=== PATIENT | male | born 2000 | race Two or more races ===

== ENCOUNTER 2024-08-26 20:56 | Emergency (ER) | payer MEDICAID, SELFPAY ==
[2024-08-26 20:57] VITALS: BMI 35.2
[2024-08-26 21:37] VITALS: BP 110/77; PULSE 60; RESP 18; TEMP 36.7; O2SAT 96
--- NOTE | 2024-08-26 22:06 | EDNOTE_ITS ---
ED General RME/HPI General Chief complaint: General Adult/Misc Complain Stated complaint: fish hook in L thumb Time Seen by Provider: 08/26/24 21:54 Arrival date/time: 08/26/24 20:56 RME / HPI RME / HPI narrative: 24-year-old male patient was brought in by family for evaluation regarding fishhook to the left thumb patient was fishing, it happened about 1 hour prior to ER visit accidentally got caught on a fishhook. Patient tried to remove with no success. Denies any other injury. Tetanus vaccination is unknown. Related Data Previous Rx's ?Medication ?Instructions ?Recorded docusate sodium 100 mg capsule 100 mg PO BID #40 caps 11/13/22 (Colace) hydrocodone 5 mg-acetaminophen 325 1 tab PO Q6H PRN pa in (scale score 11/13/22 mg tablet 7-10) #20 tabs ibuprofen 600 mg tablet 600 mg PO Q8H PRN pain (scal e 11/13/22 score 4-6) #15 tabs amoxicillin 875 mg-potassium 1 tab PO BID #14 tabs clavulanate 125 mg tablet Allergies Allergy/AdvReac Type Severity Reaction Status Date / Time No Known Allergies Allergy Verified 08/26/24 21:02 Review of Systems Review of Systems Narrative Review of Systems: Review of system reviewed and within normal limits except mentioned in HPI ED Exam Narrative Physical exam: VITAL SIGNS: Reviewed. GENERAL APPEARANCE: Alert and interactive, follows commands, no acute distress, HEAD AND FACE: Non-traumatic. ENT: PERRL, pink conjunctivitis, eyelid no trauma, Mucous membrane moist. NECK: Supple, nontender, no nuchal rigidity. EXTREMITIES: [place] stuck to the left thumb, full range of motion. SKIN: Color pink, dry, no rash, no lacerations, no abrasions, no contusions. LYMPHATICS: Deferred. Course Quality Measures none Orders Category Date Time Status Wound Care NOW Care 08/26/24 22:00 Active Amoxicillin/Pot Clav 875 [Augmentin 875] Med 08/26/24 22:06 Once 1 tab PO X1 ONE Dexamethasone Inj [Decadron Inj] Med 08/26/24 21:55 Discontinued 10 mg PO X1 ONE TET,DIP/PERT AC (Adult)-Tdap [Boostrix Adult (Tdap) Med 08/26/24 22:00 Discontinued Vacc] 0.5 ml IMI .ONCE ONE Vital Signs Vital signs: Vital Signs Temperature 98.1 F 08/26/24 21:37 Pulse Rate 60 08/26/24 21:37 Respiratory Rate 18 08/26/24 21:37 Blood Pressure 110/77 08/26/24 21:37 Pulse Oximetry (%) 96 08/26/24 21:37 Oxygen Delivery Method Room Air 08/26/24 21:37 Procedures -ED Foreign Body Removal Time Out Performed: yes Site: other (Left thumb) Description of foreign body: fish hook Sedation/Analgesia: none Technique: manual removal Confirmed by:: direct visualization Complications: none Post-procedure exam: awake, alert Neurovascular: normal capillary fill Discharge Plan Plan Patient Disposition: HOME (Self Care) Discharge Disposition comment: Stable Prescriptions/Referrals Prescriptions/Med Rec: New amoxicillin-pot clavulanate 875-125 mg tablet 1 tab PO BID Qty: 14 0RF No Action docusate sodium [Colace] 100 mg capsule 100 mg PO BID Qty: 40 0RF hydrocodone-acetaminophen 5-325 mg tablet 1 tab PO Q6H MDD 4 PRN (Reason: pain (scale score 7-10)) Qty: 20 0RF ibuprofen 600 mg tablet 600 mg PO Q8H PRN (Reason: pain (scale score 4-6)) Qty: 15 0RF Problem List Clinical Impression: [place] injury to finger Patient/Caregiver Discharge Instructions Discharge Activity: activity as tolerated Education Materials: ED Foreign Body Soft Tissue Additional Instructions: Thank you for the opportunity for serving you today. You are stable for discharged . You are advised to: Follow-up with your PCP in 1 to 2 days Return to ED for worsening of symptoms Increase oral fluids Take medication as prescribed Daily dressing with Neosporin as needed Take Tylenol or Motrin as needed for pain Print Language: Palauan PA/FOREST AIDE Supervising Physician PA/FOREST AIDE Supervising Physician: MD Kylie MDM Narrative MDM hospital course: 24-year-old male patient was brought in by family for evaluation regarding fishhook to the left thumb patient was fishing, it happened about 1 hour prior to ER visit accidentally got caught on a fishhook. Patient tried to remove with no success. Denies any other injury. Tetanus vaccination is unknown. [place] removed by me see procedure note. Patient received Augmentin and Boostrix. Patient tolerated procedure well Imaging is not needed at this time Medication Administration(s) Medication Administration History Discontinued Medications Amoxicillin/Clavulanate Potassium (Amoxicillin/Pot Clav 875 Tablet) 1 tab PO X1 ONE Stop: 08/26/24 22:07 Dexamethasone Sodium Phosphate (Dexamethasone Sod Phos Inj 10 Mg/Ml Vial) 10 mg PO X1 ONE Stop: 08/26/24 21:56 Diphtheria/Tetanus/Acell Pertussis (Diphth,Pertuss(Acell),Tet Vac 0.5 Ml Syr- Adult) 0.5 ml IMi .ONCE ONE Stop: 08/26/24 22:01 Diagnosis Differential diagnosis: [place], foreign body finger Differential dx and/or dx ruled out: [place] left thumb Most likely dx, and/or detailed dx discussion: [place] left thumb Dispositon Disposition: Discharge Home
[2024-08-26] MEDS: DIPHTH,PERTUSS(ACELL),TET VAC 0.5 ML SYR- ADULT IMi (22:17)
[2024-08-26] MEDS: AMOXICILLIN/POT CLAV 875 TABLET 1 TAB PO (22:19)
== END 2024-08-26 22:23 | disposition home or self-care (01) ==
PROVIDERS: Emergency Provider Emergency Medicine; PCP Family Medicine
DX: S61.042A Puncture wound with foreign body of left thumb without damage to nail, initial encounter (principal); W45.8XXA Other foreign body or object entering through skin, initial encounter; Z23 Encounter for immunization
CPT/HCPCS: 90471; 90715; 99282; A9270